=== PATIENT | male | born 1960 | race Caucasian/White ===

== ENCOUNTER 2022-01-31 10:04 | Outpatient (CLI) | payer OTHER, SELFPAY ==
--- NOTE | 2022-01-31 | XR_ITS ---
WS: [id number] HIP WITH PELVIS RIGHT TECHNIQUE: 3 views of the right hip with pelvis CLINICAL INFORMATION: PAIN COMPARISON: None. FINDINGS: Moderate degenerative arthritis RIGHT hip with joint space narrowing. Mild hypertrophic spurring. Fem oral neck is normal. No subchondral collapse. Visualized RIGHT pubic rami are normal. Vascular calcif ication. No acute fractures. XR/XR hip RT 2-3V wo/w pel* [id number] IMPRESSION: Moderate degenerative arthritis RIGHT hip with joint space narrowing. Tonnis classification: grade 2: small cysts in femoral head/acetabulum or moder ate joint space narrowing or moderate loss of head sphericity
--- NOTE | 2022-01-31 10:42 | XR_ITS ---
WS: [id number] HIP WITH PELVIS LEFT TECHNIQUE: 3 views of the left hip with pelvis CLINICAL INFORMATION: PAIN COMPARISON: None. FINDINGS: Moderate degenerative arthritis LEFT hip with joint space narrowing. Vascular calcification. Visualiz ed LEFT pubic rami are normal. Mild hypertrophic changes about the acetabulum. Vascular calcification . Normal visualized soft tissues. XR/XR hip LT 2-3V wo/w pel* [id number] IMPRESSION: Moderate degenerative arthritis LEFT hip with joint space narrowing. Tonnis classification: grade 2: small cysts in femoral head/acetabulum or moder ate joint space narrowing or moderate loss of head sphericity
--- NOTE | 2022-01-31 10:42 | XR_ITS ---
WS: [id number] CERVICAL SPINE TECHNIQUE: 3 views of the cervical spine CLINICAL INFORMATION: PAIN COMPARISON: None. FINDINGS: Straightening of the normal cervical lordosis. Moderate spondylitic changes with disc space narrowing worse at C5-C7. Mild anterior hypertrophic changes. Normal C1-C2 articulation. Normal prevertebral s oft tissues. Mild cervical curve convex LEFT. Lung apices are well aerated. Normal dens. XR/XR cervical spine 3V* [id number] IMPRESSION: 1. Straightening of the normal cervical lordosis. 2. Moderate spondylitic changes with disc space narrowing worse at C5-C6 and C 6-C7. 3. Normal dens. Normal C1-2 articulation.
--- NOTE | 2022-01-31 10:42 | XR_ITS ---
WS: [id number] LUMBAR SPINE TECHNIQUE: 3 views of the lumbar spine CLINICAL INFORMATION: PAIN COMPARISON: None. FINDINGS: Five [id number] lumbar vertebral bodies. Mild lumbar curve convex RIGHT. Disc space narrowing wo rse L5-S1 with [id number] articulation. Slight retrolisthesis L5 on S1. Moderate facet arthropathy L4-L5 and L5-S1. Aortic calcification. XR/XR lumbar spine 2-3V* [id number] IMPRESSION: 1. Mild lumbar curve convex RIGHT. 2. Disc space narrowing worse L5-S1 with [id number] articulation. 3. Moderate facet arthropathy L4-L5 and L5-S1. 4. Slight retrolisthesis L5 on S1 measuring 3 mm.
== END 2022-01-31 10:05 | disposition home or self-care (01) ==
LOC: RAD 10:09
PROVIDERS: Visit Provider Dermatology
DX: Z02.71 Encounter for disability determination (principal); M16.0 Bilateral primary osteoarthritis of hip; M48.02 Spinal stenosis, cervical region; M12.88 Other specific arthropathies, not elsewhere classified, other specified site
CPT/HCPCS: 72040; 72100; 73502